=== PATIENT | male | born 1935 | race Caucasian/White ===

== ENCOUNTER 2020-04-28 01:30 | Inpatient (IN) | payer MEDICARE, OTHER ==
[~2020-04-28] VITALS: Ht 167.6 cm; Wt 89.9 kg
--- NOTE | 2020-04-28 01:36 | PHYS DOC ---
Past History Past Medical History: Anemia, Angina, Arthritis, CAD, CHF, COPD, Glaucoma, Heart Disease, Renal Disease Past Medical History sleep apnea Past Surgical History: Pacemaker General Adult HPI: HPI: ".. [facility].. I am... Supposed to be on oxygen all the time... I have been getting sick for a few days now... Cough more... short of breath.. I did get my flu shot the other day... I got a bad ticker.. the put this pacer in... a while back...but I am swelling more than usual... :' Patient is a 84 year old male who presents with above hx and complaints of increased dyspnea, cough, leg edema. Pt. states she has had multiple weight gain in the last week or 2. Patient states he gets all [facility] care [facility]. No recent travel or specific ill contacts. States he has had a flu vaccination and a previous Pneumovax. No history recent change in meds. Patient has past medical history of hypertension, onychomycotic nail changes, glaucoma, diabetes, hyperlipidemia, hypothyroidism, diabetic renal changes, syncope, morbid obesity, MRSA, sleep apnea, gout, arthritis, and deconditioning. No recent travel. No specific ill contacts. No recent travel outside [facility]. Review of Systems: Review of Systems: Constitutional: Denies fever or chills Eyes: Denies change in visual acuity HENT: Denies nasal congestion or sore throat Respiratory: Complaints of cough and shortness of breath Cardiovascular: Complaints of edema GI: Denies abdominal pain, nausea, vomiting, bloody stools or diarrhea : Denies dysuria Musculoskeletal: Denies back pain or joint pain Integument: Denies rash Neurologic: Denies headache, focal weakness or sensory changes Endocrine: Denies polyuria or polydipsia Lymphatic: Denies swollen glands Psychiatric: Denies depression or anxiety Heart Score: HEART Score for Chest Pain: HEART Score for Chest Pain Response (Comments) Value History Moderately Suspicious 1 ECG Nonspecific Repolarizatio 1 Age > 65 2 Risk Factors >3 Risk Factors or Hx CAD 2 Total 6 Risk Factors: Risk Factors: DM, Current or recent (<one month) smoker, HTN, HLP, family history of CAD, obesity. Risk Scores: Score 0 - 3: 2.5% MACE over next 6 weeks - Discharge Home Score 4 - 6: 20.3% MACE over next 6 weeks - Admit for Clinical Observation Score 7 - 10: 72.7% MACE over next 6 weeks - Early Invasive Strategies Family History: Family History: Noncontributory to presentation Current Medications: Current Meds: See nursing for home meds Allergies: Allergies: No known drug allergies Physical Exam: PE: Constitutional, moderate acute distress, non-toxic appearance. [] HENT: Normocephalic, atraumatic, bilateral external ears normal, oropharynx moist, no oral exudates, nose normal. [] Eyes: PERRLA, EOMI, conjunctiva normal, no discharge. [] Neck: Normal range of motion, no tenderness, supple, no stridor. Neck more than 17 inches circumference Cardiovascular: Irregular heart rate and irregular rhythm, no murmur . PMI to the left. Monitor shows a paced rhythm with occasional spontaneous sinus beat. Lungs & Thorax: Bilateral breath sounds equal apex with scattered wheezes and basilar crackles on auscultation . Has pacer on left chest wall. Abdomen: Bowel sounds normal, soft, no tenderness, no masses, no pulsatile masses. Obese. Skin: Warm, diaphoretic, no erythema, no rash. [] Back: No tenderness, no CVA tenderness. [] Extremities: No tenderness, no cyanosis, no clubbing, ROM intact, pitting edema to the level of the knees edema. Arthritic changes. New ecchymosis and erythema Rt upper arm. Neurologic: Alert and oriented X 3, moves all extremities on request, has distal sensory, no focal deficits noted. [] Very hard of hearing. Psychologic: Affect anxious , judgement normal, mood normal. [] EKG: EKG: My interpretation EKG shows a ventricular rate of 66. His regular rhythm. No obvious P waves. Occasionally does have a sinus complex. Majority appears to be paced however does have a left bundle branch block. [] Radiology/Procedures: Radiology/Procedures: [][address] [address] IMAGING REPORT Signed PATIENT: JOSE CRUZ SÁNCHEZ AACCOUNT: [id number] : 1935 LOCATION: ER AGE: 84 SEX: M EXAM STATUS: PRE ER ORD. PHYSICIAN: RACHELL BAXTER MD REASON: dyspnea PROCEDURE: PORTABLE CHEST 1V AP chest x-ray HISTORY: Dyspnea. FINDINGS: Dual-chamber cardiac pacemaker. Mild cardiomegaly. Aortic arch calcified plaque. Calcified granuloma versus calcified pleural plaque along the left lung base adjacent of the diaphragm. Mild elevation of the right diaphragm. No pneumothorax, pulmonary opacities or pleural effusions. IMPRESSION: No acute process evident. Mild cardiomegaly. Electronically signed by: Sonam Purcell MD (04/28/2020 2:32 AM) [facility] [place] DICTATED AND SIGNED BY: SONAM PURCELL MD DATE: 04/28/20231 CC: RACHELL BAXTER MD; YOLANDA ANNE MD ~[facility] Course & Med Decision Making: Course & Med Decision Making Pertinent Labs and Imaging studies reviewed. (See chart for details) Discussed presentation, testing and tx plan with Dr. Wade- admit with cardiology consult. Serial glucose checks. US of legs pending at time of admit. Impression: 1. Dyspnea Hypoxia 2. CHF-diastolic dysfunction BNP 1683 3. Hyperglycemia glucose 40 4. Anemia hemoglobin 11.2 5. Renal insufficiency BUN 33 creatinine 1.6 6. Elevated d-dimer 2.44 [] Dragon Disclaimer: Dragon Disclaimer: This electronic medical record was generated, in whole or in part, using a voice recognition dictation system. Departure Departure: Disposition: 01 DC HOME SELF CARE/HOMELESS Condition: STABLE Referrals: YOLANDA ANNE MD (PCP) Dragon Disclaimer This chart was dictated in whole or in part using Voice Recognition software in a busy, high-work load, and often noisy Emergency Department environment. It may contain unintended and wholly unrecognized errors or omissions. Dragon Disclaimer This chart was dictated in whole or in part using Voice Recognition software in a busy, high-work load, and often noisy Emergency Department environment. It may contain unintended and wholly unrecognized errors or omissions. RACHELL BAXTER MD Apr 28, 2020 01:36
--- NOTE | 2020-04-28 02:18 | EKG ---
[facility] [address] [place] [address] Test Date: 2020-04-28 Test Time: 02:10:17 Pat Name: JOSE CRUZ SÁNCHEZ Department: Room: Gender: M [employer] Developer: SAÚL : 1935 Requested By: RACHELL BAXTER Order Number: [id number] Reading MD: Measurements Intervals [place] Rate: 66 P: NH: QRS: 5 QRSD: 186 T: 64 QT: 484 QTc: 509 Interpretive Statements IRREGULAR RHYTHM, NO P-WAVE FOUND LOW LIMB LEAD VOLTAGE LEFT BUNDLE BRANCH BLOCK ABNORMAL ECG RI6.02 No previous ECG available for comparison
[2020-04-28] MEDS ORDERED: ALBUTEROL SULFATE 8GM INHALER. IH ONE (02:30)
[2020-04-28] MEDS ORDERED: AZITHROMYCIN 250 MG TABLET. PO ONE (02:30)
[2020-04-28] MEDS ORDERED: IV RINGERS SOLUTION,LACTATED 1,000 ML IV SCH (02:30)
[2020-04-28] MEDS ORDERED: ASPIRIN CHEWABLE 81 MG TABLET. PO ONE (02:30)
--- NOTE | 2020-04-28 02:35 | RAD ---
AP chest x-ray HISTORY: Dyspnea. FINDINGS: Dual-chamber cardiac pacemaker. Mild cardiomegaly. Aortic arch calcified plaque. Calcified granuloma versus calcified pleural plaque along the left lung base adjacent of the diaphragm. Mild elevation of the right diaphragm. No pneumothorax, pulmonary opacities or pleural effusions. IMPRESSION: No acute process evident. Mild cardiomegaly. Electronically signed by: Aamir Purcell MD (04/28/2020 2:32 AM) [facility]
[2020-04-28] MEDS ORDERED: IV NORMAL SALINE 50ML 50 ML ONE (02:36)
[2020-04-28] MEDS ORDERED: cefTRIAXone SODIUM 1 GM VIAL ONE (02:36)
[2020-04-28 02:45] LABS: BASO % 0 % (0-3); EOS # 0.1 x10^3/uL (0.0-0.7); EOS % 1 % (0-3); HEMATOCRIT 34.5 % (39.0-53.0); HEMOGLOBIN 11.2 g/dL (13.0-17.5); LYMPH # 1.6 x10^3/uL (1.0-4.8); LYMPH % 17 % (24-48); MEAN CORPUSCULAR HEMOGLOBIN 32 pg (25-35); MEAN CORPUSCULAR HGB CONC 32 g/dL (31-37); MEAN CORPUSCULAR VOLUME 98 fL (79-100); MONO # 1.2 x10^3/uL (0.0-1.1); MONO % 12 % (0-9); NEUT # 6.6 x10^3uL (1.8-7.7); NEUT % 70 % (31-73); PLATELET COUNT 218 x10^3/uL (140-400); RED BLOOD COUNT 3.51 x10^6/uL (4.30-5.70); RED CELL DISTRIBUTION WIDTH 14.5 % (11.5-14.5); WHITE BLOOD COUNT 9.6 x10^3/uL (4.0-11.0)
[2020-04-28 03:13] LABS: ALBUMIN 3.3 g/dL (3.4-5.0); CALCIUM 8.9 mg/dL (8.5-10.1); CREATININE 1.6 mg/dL (0.7-1.3); DIRECT BILIRUBIN 0.2 mg/dL (0.0-0.2); GFR 41.3; POTASSIUM 3.6 mmol/L (3.5-5.1); TOTAL BILIRUBIN 0.4 mg/dL (0.2-1.0); TOTAL PROTEIN 7.3 g/dL (6.4-8.2)
[2020-04-28] MEDS ORDERED: DEXTROSE 50% 25 GM / 50ML DISP.SYRIN. IV ONE ×2 (03:16→04:00)
[2020-04-28] MEDS ORDERED: ACETAMINOPHEN 325 MG TABLET PO PRN (03:30)
[2020-04-28] MEDS ORDERED: ONDANSETRON PF 4 MG/2 ML VIAL. IVP PRN (03:30)
[2020-04-28] MEDS ORDERED: ANTI-COAG MONITOR BY PHARMACY. MC PRN (03:45)
[2020-04-28] MEDS ORDERED: FUROSEMIDE 40 MG/4 ML VIAL IVP ONE (04:00)
[2020-04-28 04:14] LABS: BGAS PH 7.32 (7.35-7.46)
[2020-04-28] MEDS: ENOXAPARIN ** NOTE DOSE ** SYRINGE SQ SCH ×2 (04:46→20:31)
--- NOTE | 2020-04-28 04:55 | RAD ---
Bilateral lower extremity venous duplex Doppler ultrasound HISTORY: Leg edema and pain and swelling. FINDINGS: No DVT on grayscale sonography with compressibility, patent color Doppler blood flow and augmentation of blood flow the common femoral veins, profunda femoral veins, superficial femoral veins and popliteal veins. No DVT evident with patent color Doppler blood flow and augmentation of flow the posterior tibial peroneal veins in the calves. There is mild calf soft tissue edema. IMPRESSION: Negative bilateral legs for DVT. Electronically signed by: Aamir Purcell MD (04/28/2020 4:52 AM) [facility]
--- NOTE | 2020-04-28 06:00 | NUR ---
ADMISSION: The patient, JOSE CRUZ SÁNCHEZ, 84 y/o, M admitted by MK RODAS MD, was given written information regarding hospital policies, unit procedures and contact persons. Valuables were checked and logged.
[2020-04-28 06:10] VITALS: BP 118/64
[2020-04-28 07:16] LABS: BARBITURATES NEG (NEG); BENZODIAZEPINES NEG (NEG); CANNABINOIDS NEG (NEG); COCAINE NEG (NEG); METHADONE NEG (NEG); OPIATES NEG (NEG); PHENCYCLIDINE NEG (NEG)
[2020-04-28 07:24] LABS: BACTERIA,URINE 0 /HPF (0-FEW); BILIRUBIN,URINE NEG (NEG); CLARITY,URINE CLEAR; COLOR,URINE YELLOW; GLUCOSE,URINE NEG (NEG); NITRITE,URINE NEG (NEG); RBC,URINE RARE /HPF (0-2); SQUAMOUS EPITHELIAL CELL,UR OCC /LPF; UROBILINOGEN,URINE 0.2 mg/dL (0.2 mg/dL); WBC,URINE RARE /HPF (0-4)
--- NOTE | 2020-04-28 07:32 | NUR ---
Cardiology consult called to Dr. Pan. L/M with answering service, awaiting call back.
[2020-04-28 07:36] LABS: AMPHETAMINE/METHAMPHETAMINE NEG (NEG)
[2020-04-28] MEDS: IPRATRPIUM/ALBUTEROL 0.5/2.5MG 3 ML NEBU. NEB SCH ×5 (09:30→20:02)
[2020-04-28] MEDS: ASPIRIN CHEWABLE 81 MG TABLET. PO SCH (10:19)
[2020-04-28 11:00] VITALS: BP 138/60
[2020-04-28 14:41] VITALS: BP 142/63
--- NOTE | 2020-04-28 15:06 | PDOC2 ---
CONSULT DOS: DATE: 04/28/20 TIME: 14:59 Reason for Consult: Respiratory failure Referring Physician: Dr. Wade Chief Complaint Shortness of breath Source: Chart review, Patient Problem List Problems Medical Problems: (1) Dyspnea Status: Acute History of Present Illness The patient is an 84-year-old male who presented to the emergency room with episodes of increasing shortness of breath and cough. The patient states that his shortness of breath has been increasing for several days. He denies chest pain. Initial evaluation included an EKG showed a paced rhythm. Chest x-ray showed cardiomegaly but no acute infiltrates. Lower extremity ultrasound showed no DVT. Troponin was less than 0.017. BNP is elevated at 1683. Glucose was decreased at 40 and was treated. The patient states he has been feeling better overnight. He is a somewhat difficult historian. [facility] As noted above he does have a history of a permanent pacemaker. Cardiovascular: CAD, CHF, HTN, hyperipidemia, Other (Arrhythmias) Pulmonary: COPD, Other (Sleep apnea) GI: GERD Renal/: Chronic renal insuff Endocrine: Diabetes Past Surgical History: Pacemaker Family History: Hypertension ALCOHOL: none Current Medications Current Medications Aspirin (Aspirin Chewable) 324 mg 1X ONCE PO Last administered on 04/28/20at 02:40; Start 04/28/20 at 02:30; Stop 04/28/20 at 02:31; Status DC Lactated Ringer's 1,000 ml @ 100 mls/hr Q10H IV Last administered on 0at 02:41; Start 04/28/20 at 02:30; Stop 04/28/20 at 12:29; Status DC Azithromycin (Zithromax) 500 mg 1X ONCE PO Last administered on 04/28/20at 02:41; Start 04/28/20 at 02:30; Stop 04/28/20 at 02:31; Status DC Ceftriaxone Sodium 1 gm/ Sodium Chloride 50 ml @ 100 mls/hr 1X ONCE IV Last administered on 04/28/20at 02:42; Start 04/28/20 at 02:30; Stop 04/28/20 at 02:59; Status DC Albuterol Sulfate (Ventolin Hfa Inhaler) 2 puff 1X ONCE IH Last administered on 04/28/20at 03:57; Start 04/28/20 at 02:30; Stop 04/28/20 at 02:31; Status DC Sodium Chloride 50 ml @ As Directed STK-MED ONCE .ROUTE ; Start 04/28/20 at 02:36; Stop 04/28/20 at 02:36; Status DC Ceftriaxone Sodium (Rocephin) 1 gm STK-MED ONCE .ROUTE ; Start 04/28/20 at 02:36; Stop 04/28/20 at 02:36; Status DC Dextrose (Dextrose 50%-Water Syringe) 25 gm STK-MED ONCE IV ; Start 04/28/20 at 03:16; Stop 04/28/20 at 03:16; Status DC Dextrose (Dextrose 50%-Water Syringe) 25 gm 1X ONCE IV Last administered on 04/28/20at 03:26; Start 04/28/20 at 04:00; Stop 04/28/20 at 04:01; Status DC Ondansetron HCl (Zofran) 4 mg PRN Q4HRS PRN IVP NAUSEA/VOMITING; Start at 03:30; Stop 04/29/20 at 03:29 Acetaminophen (Tylenol) 650 mg PRN Q4HRS PRN PO FEVER > 100.3'F; Start 04/28/20 at 03:30; Stop 04/29/20 at 03:29 Albuterol/ Ipratropium (Duoneb) 3 ml RTQID NEB Last administered on 04/28/20at 09:30; Start 04/28/20 at 08:00; Stop 04/29/20 at 07:59 Enoxaparin Sodium (Lovenox 100mg Syringe) 90 mg BID SQ Last administered on 04/28/20at 04:46; Start 04/28/20 at 04:00 Aspirin (Aspirin Chewable) 81 mg DAILYWBKFT PO Last administered on 04/28/20at 10:19; Start 04/28/20 at 08:00 Furosemide (Lasix) 40 mg 1X ONCE IVP Last administered on 04/28/20at 04:41; Start 04/28/20 at 04:00; Stop 04/28/20 at 04:01; Status DC Info (Anti-Coagulation Monitoring By Pharmacy) 1 each PRN DAILY PRN MC SEE COMMENTS; Start 04/28/20 at 03:45 Allergies: Coded Allergies: No Known Drug Allergies (Unverified , 04/28/20) General: YES: Fatigue Respiratory: YES: Cough, Shortness of breath, SOB with excertion General: mild distress HEENT: Atraumatic Lungs: Other (Decreased breath sounds) Heart: Regular rate Abdomen: Normal bowel sounds VITALS Vital Signs Date Time Temp Pulse Resp B/P (MAP) Pulse Ox O2 Delivery O2 Flow Rate FiO2 04/28/20 14:41 97.7 63 16 142/63 (89) 95 Nasal Cannula 4.0 Labs Laboratory Tests Test 04/28/20 01:57 04/28/20 03:52 04/28/20 03:57 04/28/20 06:36 White Blood Count 9.6 x10^3/uL (4.0-11.0) Red Blood Count 3.51 x10^6/uL (4.30-5.70) Hemoglobin 11.2 g/dL (13.0-17.5) Hematocrit 34.5 % (39.0-53.0) Mean Corpuscular Volume 98 fL (79-100) Mean Corpuscular Hemoglobin 32 pg (25-35) Mean Corpuscular Hemoglobin Concent 32 g/dL (31-37) Red Cell Distribution Width 14.5 % (11.5-14.5) Platelet Count 218 x10^3/uL (140-400) Neutrophils (%) (Auto) 70 % (31-73) Lymphocytes (%) (Auto) 17 % (24-48) Monocytes (%) (Auto) 12 % (0-9) Eosinophils (%) (Auto) 1 % (0-3) Basophils (%) (Auto) 0 % (0-3) Neutrophils # (Auto) 6.6 x10^3uL (1.8-7.7) Lymphocytes # (Auto) 1.6 x10^3/uL (1.0-4.8) Monocytes # (Auto) 1.2 x10^3/uL (0.0-1.1) Eosinophils # (Auto) 0.1 x10^3/uL (0.0-0.7) Basophils # (Auto) 0.0 x10^3/uL (0.0-0.2) Prothrombin Time 11.0 SEC (9.4-11.4) Prothromb Time International Ratio 1.1 (0.9-1.1) Activated Partial Thromboplast Time 27 SEC (23-33) D-Dimer (Cinthya) 2.44 mg/L (0.00-0.50) Sodium Level 144 mmol/L (136-145) Potassium Level 3.6 mmol/L (3.5-5.1) Chloride Level 106 mmol/L (98-107) Carbon Dioxide Level 31 mmol/L (21-32) Anion Gap 7 (6-14) Blood Urea Nitrogen 33 mg/dL (8-26) Creatinine 1.6 mg/dL (0.7-1.3) Estimated GFR (Cockcroft-Gault) 41.3 Glucose Level 40 mg/dL (70-99) Lactic Acid Level 0.6 mmol/L (0.4-2.0) Calcium Level 8.9 mg/dL (8.5-10.1) Magnesium Level 2.0 mg/dL (1.8-2.4) Total Bilirubin 0.4 mg/dL (0.2-1.0) Direct Bilirubin 0.2 mg/dL (0.0-0.2) Aspartate Amino Transf (AST/SGOT) 27 U/L (15-37) Alanine Aminotransferase (ALT/SGPT) 20 U/L (16-63) Alkaline Phosphatase 110 U/L (46-116) Creatine Kinase 94 U/L (39-308) Troponin I Quantitative < 0.017 ng/mL (0-0.055) IM-Ftk-D-Type Natriuretic Peptide 1683 pg/mL (0-449) Total Protein 7.3 g/dL (6.4-8.2) Albumin 3.3 g/dL (3.4-5.0) Lipase 161 U/L (73-393) Thyroid Stimulating Hormone (TSH) 3.692 uIU/mL (0.358-3.740) Glucose (Fingerstick) 137 mg/dL (70-99) Blood Gas pH 7.32 (7.35-7.46) Blood Gas PCO2 63 mmHg (35-46) Blood Gas PO2 132 mmHg (71-100) Blood Gas HCO3 33 mmol/L (21-28) Arterial Bld O2 Saturation (Calc) 99 % (92-99) FiO2 38 % Urine Collection Type Unknown Urine Color Yellow Urine Clarity Clear Urine pH 5.5 Urine Specific [place] 1.015 Urine Protein Neg (NEG-TRACE) Urine Glucose (UA) Neg mg/dL (NEG) Urine Ketones (Stick) Neg mg/dL (NEG) Urine Blood Neg (NEG) Urine Nitrite Neg (NEG) Urine Bilirubin Neg (NEG) Urine Urobilinogen Dipstick 0.2 mg/dL (0.2 mg/dL) Urine Leukocyte Esterase Neg (NEG) Urine RBC Rare /HPF (0-2) Urine WBC Rare /HPF (0-4) Urine Squamous Epithelial Cells Occ /LPF Urine Bacteria 0 /HPF (0-FEW) Urine Opiates Screen Neg (NEG) Urine Methadone Screen Neg (NEG) Urine Barbiturates Neg (NEG) Urine Phencyclidine Screen Neg (NEG) Urine Amphetamine/Methamphetamine Neg (NEG) Urine Benzodiazepines Screen Neg (NEG) Urine Cocaine Screen Neg (NEG) Urine Cannabinoids Screen Neg (NEG) Urine Ethyl Alcohol Neg (NEG) Test 04/28/20 07:37 04/28/20 11:30 Glucose (Fingerstick) 81 mg/dL (70-99) 168 mg/dL (70-99) Images Chest x-ray. No acute changes, cardiomegaly Assessment/Plan 1. Respiratory failure. Patient is feeling better this morning. Multiple conditions including COPD, heart failure and sleep apnea. BNP elevated at 1683. We will continue present medications and monitor. 2. Hypertension. Patient's blood pressure is under better control. 3. COPD. Continue baseline medications. 4. Permanent pacemaker. Normal functioning. Will attempt to obtain further records. 5. Reported history of coronary artery disease. No chest pain. No significant elevation in troponin. 6. Diabetes mellitus. Glucose level 40 on admission. Has been treated. 7. Chronic renal disease. Creatinine of 1.6. We will continue to monitor. Thank you for allowing us to participate in the care of your patient. COCO BLOCK MD Apr 28, 2020 15:06
--- NOTE | 2020-04-28 17:02 | HP ---
ADMIT DATE: 04/28/2020 HISTORY OF PRESENT ILLNESS: The patient is an 84-year-old male patient who came to the Emergency Room complaining of cough, shortness of breath and also marked swelling of the legs. He stated that he has multiple weight gains in the last week or two. The patient stated that [facility] No recent travel or specific ill contacts. States he has had a flu vaccination and the previous Pneumovax. No history of recent change in medication. The patient has multiple medical problems and apparently about 3 weeks ago has had a permanent pacemaker placed at [facility]. On arrival to the Emergency Room, he was extensively investigated. His EKG showed that he was paced rhythm at a ventricular rate of 66 beats per minute. His chest x-ray showed no acute process evident with mild cardiomegaly. The patient was admitted with what seems to be acute on chronic diastolic congestive heart failure and was treated with IV Lasix and apparently his lab work shows slightly elevated BNP of 1683. He was also found to be hypoglycemic with acute on chronic or chronic kidney injury. PAST MEDICAL HISTORY: Significant for coronary artery disease, congestive heart failure, hypertension, hyperlipidemia. He has also morbid obesity, obstructive sleep apnea, gastroesophageal reflux disease, and chronic obstructive pulmonary disease, has chronic renal insufficiency, diabetes. PAST SURGICAL HISTORY: Significant for permanent pacemaker placement. FAMILY HISTORY: Significant for hypertension. SOCIAL HISTORY: He apparently lives alone. He is an ex-smoker and quit about 2 years ago. He stated that he used to smoke up to 5 packs a day. He also said he used to drink alcohol heavily. He retired from the [employer]. REVIEW OF SYSTEMS: As per history of present illness. MEDICATIONS: He unfortunately does not know his medication. He gets them from the [facility], which is closed today. ALLERGIES: He has no known drug allergies. PHYSICAL EXAMINATION: GENERAL: On arrival to the Emergency Room, he was slightly tachypneic, but there is no pallor, jaundice, cyanosis or thyromegaly. No jugular venous distention or limb edema. VITAL SIGNS: His heart rate was 67, blood pressure was 141/63, temperature was 97.4, respiratory rate was 18 and oxygen saturation was 98% on 4 liters of oxygen. HEAD, EYES, EARS, NOSE AND THROAT: Showed normocephalic, atraumatic. NECK: Supple. HEART: Showed normal first and second heart sounds. No gallop or murmur. CHEST: Shows central trachea, equal bilateral chest expansion, air entry, vesicular breath sounds. He has bilateral basal crepitation. I could not appreciate any rhonchi. ABDOMEN: Distended, soft, nontender. NEUROLOGIC: He was awake, alert, responding appropriately. All cranial nerves intact. EXTREMITIES: He moves extremities without difficulty, ambulates without assistance or assistive devices. LABORATORY DATA: His lab work on arrival showed a white cell count 9600, hemoglobin 11, hematocrit 34, MCV 98 and platelet count 218,000. His serum sodium was 144, potassium 3.6, chloride 106, bicarbonate 31, anion gap of 7, BUN 33, creatinine 1.6, estimated GFR was 41 mL per minute. His calcium was 8.9, magnesium 2. Total bilirubin, AST, ALT, alkaline phosphatase were normal. Beta natriuretic peptide was 1683. Total protein was 7.3, albumin was 3.3, lipase was 161. His TSH was 3.692. His prothrombin time was 11, INR 1.1, aPTT was 27 and D-dimer was 2.44. Urinalysis was essentially unremarkable and toxic screen was essentially negative. His chest x-ray showed dual chamber cardiac pacemaker, mild cardiomegaly, aortic arch calcified, calcified plaques, calcified granuloma versus calcified pleural plaque along the left lung base adjacent to the diaphragm, mild elevation of the right hemidiaphragm. No pneumothorax, pulmonary opacities or pleural effusion. He did have venous Doppler ultrasound of both lower extremities. Both legs were negative for DVT. The patient was basically treated with IV furosemide as well as ceftriaxone and Zithromax and was admitted for further evaluation and treatment. MK RODAS MD DR: SNOW/alice JOB#: [id number] / [id number]
[2020-04-28 19:23] VITALS: BP 153/71
[2020-04-28 23:06] VITALS: BP 125/51
--- NOTE | 2020-04-29 05:01 | NUR ---
Pt no c/o pain, decreased SOA, hopeful to d/c today.
[2020-04-29] MEDS: IPRATRPIUM/ALBUTEROL 0.5/2.5MG 3 ML NEBU. NEB SCH (05:04)
[2020-04-29 05:46] VITALS: BP 168/67
[2020-04-29 07:21] LABS: BASO % 0 % (0-3); EOS # 0.1 x10^3/uL (0.0-0.7); EOS % 2 % (0-3); HEMATOCRIT 32.8 % (39.0-53.0); HEMOGLOBIN 10.5 g/dL (13.0-17.5); LYMPH # 1.4 x10^3/uL (1.0-4.8); LYMPH % 18 % (24-48); MEAN CORPUSCULAR HEMOGLOBIN 32 pg (25-35); MEAN CORPUSCULAR HGB CONC 32 g/dL (31-37); MEAN CORPUSCULAR VOLUME 98 fL (79-100); MONO # 0.9 x10^3/uL (0.0-1.1); MONO % 11 % (0-9); NEUT # 5.2 x10^3uL (1.8-7.7); NEUT % 68 % (31-73); PLATELET COUNT 198 x10^3/uL (140-400); RED BLOOD COUNT 3.33 x10^6/uL (4.30-5.70); RED CELL DISTRIBUTION WIDTH 15.1 % (11.5-14.5); WHITE BLOOD COUNT 7.6 x10^3/uL (4.0-11.0)
[2020-04-29 07:42] LABS: ALBUMIN 2.8 g/dL (3.4-5.0); ALBUMIN/GLOBULIN RATIO 0.8 (1.0-1.7); CALCIUM 8.7 mg/dL (8.5-10.1); CREATININE 1.3 mg/dL (0.7-1.3); GFR 52.5; TOTAL BILIRUBIN 0.3 mg/dL (0.2-1.0); TOTAL PROTEIN 6.3 g/dL (6.4-8.2)
[2020-04-29] MEDS: ASPIRIN CHEWABLE 81 MG TABLET. PO SCH (07:58)
[2020-04-29] MEDS: ENOXAPARIN ** NOTE DOSE ** SYRINGE SQ SCH (07:58)
[2020-04-29 11:00] VITALS: BP 142/62
--- NOTE | 2020-04-29 13:49 | NUR ---
PATIENT IS DISCHARGED HOME WITH SELF CARE. PATIENTS TELE MONITOR REMOVED IV D/C'D. PATIENT IS GIVEN DISCHARGE AND FOLLOW UP INSTRUCTIONS. PT IS STABLE AT DISCHARGE. PATIENT AMBULATED OFF OF UNIT ACCOMPANIED BY STAFF.
--- NOTE | 2020-04-29 17:15 | DS ---
DATE OF DISCHARGE: 04/29/2020 HOSPITAL COURSE: The patient is an 84-year-old male patient who was brought to the Emergency Room complaining of cough, shortness of breath and also marked swelling of his legs. He states he has multiple weight gains in the last week or two. The patient stated he gets all his care at the [facility]. No recent travel or specific ill contacts. States he has a flu vaccination and previous Pneumovax. No history of recent change in medication. He underwent recently left carotid endarterectomy and basically, he was extensively investigated in the Emergency Room. His EKG showed that he has a paced rhythm with a ventricular rate of 66 per minute. Chest x-ray showed no acute process evident with mild cardiomegaly. The patient was admitted with acute on chronic diastolic congestive heart failure. He has received IV Lasix and apparently his lab work has slightly elevated ____. He was also hypoglycemic with chronic kidney injury. Unfortunately, he did not bring his cell phone. He gets medications at the [facility] and we could not get any list of his medication and nobody at home to talk to as his son is in [place]. However, when I saw him this morning, he was resting flat in bed, in no apparent distress. He denied any chest pain, no shortness of breath, no swelling of the legs and his oxygen saturation was 97% on 4 liters of oxygen. The patient has his own oxygen concentrator and oxygen cylinders at home. He lives alone and he feels fine. He denied any chest pain, shortness of breath, cough, phlegm or hemoptysis and expressed desire to go home to follow with his primary care physician at the [facility]. PHYSICAL EXAMINATION: GENERAL: When I examined him, he looked somewhat pale, but no jaundice, cyanosis or thyromegaly. No jugular venous distention. No limb edema. VITAL SIGNS: His heart rate was 58, blood pressure was 142/62, temperature 97.9, respiratory rate was 20 and oxygen saturation was 97% on 4 liters of oxygen by nasal cannula. HEAD, EYES, EARS, NOSE AND THROAT: Showed normocephalic, atraumatic. NECK: Supple. HEART: Showed normal first and second heart sounds. No gallop, rub or murmur. CHEST: Showed central trachea, equal bilateral chest expansion, air entry, vesicular breath sounds. No crepitation or rhonchi. ABDOMEN: Distended, soft, nontender. No guarding or rigidity. No organomegaly. All hernial orifices intact. Bowel sounds normal. NEUROLOGIC: He was awake, alert, responding appropriately. He ambulates without assistance or assistive devices. LABORATORY DATA: His lab work this morning showed a white cell count of 7600, hemoglobin 11, hematocrit 33, MCV 98, and platelet count of 198,000. Serum sodium 144, potassium 4, chloride 107, bicarbonate 31, anion gap of 6, BUN 28, creatinine 1.3, estimated GFR was 52 mL per minute. His glucose was 92, calcium was 8.7. Total bilirubin, AST, ALT, alkaline phosphatase were normal. Total protein was 6.3, albumin was 2.8. His prothrombin time, INR and aPTT were normal. His D-dimer was 2.44. Urinalysis was unremarkable and tox screen was negative. His blood cultures showed no growth after one day. His chest x-ray was basically unremarkable and no acute process evident. He has mild cardiomegaly. The venous Doppler ultrasound of both lower extremities showed no evidence of deep vein thrombosis. The patient was discharged home to continue all his home medications that unfortunately we have never been able to get hold of because he did not bring his cell phone. There is nobody at home to talk to and we could not get [facility]. However, the patient is hemodynamically stable, afebrile. His oxygen saturation is 97% on his usual oxygen of 4 liters. Has been up and about without any difficulty and therefore he was discharged with final discharge diagnoses of respiratory failure, probably multifactorial, resolved; hypertension, seems to be better controlled; chronic obstructive pulmonary disease, clinically quiescent. His permanent pacemaker seemed to be functioning well. History of coronary artery disease, but the patient is chest pain free and his troponin was normal. Type 2 diabetes mellitus, seems to be well controlled, in fact he was hypoglycemic on arrival; however, his blood sugars have remained stable while in the hospital. He has probably acute on chronic kidney injury, his creatinine was 1.6 ____ today, he was discharged with a creatinine of 1.3. The patient was advised to follow with his primary care physician and if obviously has any change in his status, he can come to our Emergency Room. He did not ask for any prescription. MK RODAS MD DR: Mello JOB#: [id number] / [id number]
== END 2020-04-29 13:39 | disposition home or self-care (01) | DRG 291 ==
LOC: ER 01:30 → 1 SOUTH 03:20
PROVIDERS: ADMIT Internal Medicine; ATTEND Internal Medicine
DX: I13.0 Hypertensive heart and chronic kidney disease with heart failure and stage 1 through stage 4 chronic kidney disease, or unspecified chronic kidney disease (principal); J96.90 Respiratory failure, unspecified, unspecified whether with hypoxia or hypercapnia; I50.33 Acute on chronic diastolic (congestive) heart failure; N17.9 Acute kidney failure, unspecified; M19.90 Unspecified osteoarthritis, unspecified site; I25.10 Atherosclerotic heart disease of native coronary artery without angina pectoris; J44.9 Chronic obstructive pulmonary disease, unspecified; H40.9 Unspecified glaucoma; E78.5 Hyperlipidemia, unspecified; E03.9 Hypothyroidism, unspecified; E11.65 Type 2 diabetes mellitus with hyperglycemia; E66.01 Morbid (severe) obesity due to excess calories; Z68.32 Body mass index [BMI] 32.0-32.9, adult; D64.9 Anemia, unspecified; G47.33 Obstructive sleep apnea (adult) (pediatric); K21.9 Gastro-esophageal reflux disease without esophagitis; E11.22 Type 2 diabetes mellitus with diabetic chronic kidney disease; E11.649 Type 2 diabetes mellitus with hypoglycemia without coma; N18.9 Chronic kidney disease, unspecified; Z95.0 Presence of cardiac pacemaker; Z82.49 Family history of ischemic heart disease and other diseases of the circulatory system; Z60.2 Problems related to living alone; Z87.891 Personal history of nicotine dependence
CPT/HCPCS: 36415; 36600; 71045; 80048; 80053; 80076; 80307; 81001; 82550; 82803; 82947; 83605; 83690; 83735; 83880; 84443; 84484; 85025; 85379; 85610; 85730; 87040; 93005; 93970; 94640; 96365; 96375; G0238; J0456; J0696; J1650; J1940; J7120; J7613; 94664; 99285-25